=== PATIENT | male | born 1975 | race Caucasian/White ===

== ENCOUNTER 2021-03-01 10:44 | Emergency (ER) | payer MEDICAID ==
[~2021-03-01] VITALS: Ht 165.1 cm; Wt 95.3 kg
--- NOTE | 2021-03-01 10:44 | NUR ---
Patient BIBA ALS, transferred to bed 6. RN evaluating the patient at bedside.
[2021-03-01 10:47] VITALS: BP 104/58
--- NOTE | 2021-03-01 11:00 | NUR ---
BIBA FOR POSSIBLE OVERDOSE. WAS FOUND AT [facility] BATHROOM FACE DOWN WITH NEEDLE AT SIDE. PT A&OX4. GCS 15. EMS PLACED LT HAND IV 20G, FLUIDS INFUSING. MEDHX: DENIES NKA
--- NOTE | 2021-03-01 11:20 | NUR ---
BIBA FOR POSSIBLE OVERDOSE. WAS FOUND AT [facility] BATHROOM FACE DOWN WITH NEEDLE AT SIDE. PT A&OX4. GCS 15. EMS PLACED LT HAND IV 20G, FLUIDS INFUSING. MEDHX: DENIES NKA
--- NOTE | 2021-03-01 13:20 | NUR ---
PT AMBULATED TO RESTROOM WITH STEADY GAIT.
--- NOTE | 2021-03-01 13:48 | NUR ---
Patient discharged with v/s stable. Written and verbal after care instructions given and explained. Patient verbalized understanding. Ambulatory with steady gait. All questions addressed prior to discharge. Advised to follow up with PMD.
[2021-03-01 13:51] VITALS: BP 102/54
== END 2021-03-01 13:48 | disposition home or self-care (01) ==
LOC: MED 10:44
DX: T40.1X1A Poisoning by heroin, accidental (unintentional), initial encounter (principal); R41.82 Altered mental status, unspecified; Y92.89 Other specified places as the place of occurrence of the external cause
CPT/HCPCS: 82948; 93005; 99284